=== PATIENT | female | born 1975 | race Caucasian/White ===

== ENCOUNTER → 2020-07-07 | Outpatient (CLI) | payer BC ==
[~2020-07-07] MED LIST: FLEXERIL 10 MG10 MG PO; PREDNISONE 50 M50 MG PO; TESSALON PERLE100 MG PO; Voltaren Gel 1 % TOP
[2020-07-07 18:43] LABS: HEMOGLOBIN 15.5 gm/dl (12.3-15.3); RED BLOOD COUNT 4.98 M/UL (4.00-5.10)
[2020-07-07 19:02] LABS: BUN/CREATININE RATIO 21 (0-10)
== END ==
LOC: LAB 17:28
PROVIDERS: Physician Assistant
DX: U07.1 COVID-19 (principal); R53.1 Weakness
CPT/HCPCS: 80048; 83735; 85025